=== PATIENT | female | born 1995 | race Caucasian/White ===

== ENCOUNTER → 2017-12-14 | Outpatient (CLI) | payer BC ==
[~2017-12-14] VITALS: Ht 162.6 cm; Wt 72.7 kg
[~2017-12-14] MED LIST: BIRTH CONTROL PO
[2017-12-14 11:30] VITALS: BP 124/82; PULSE 88
== END ==
LOC: COL.RAD 10:55
DX: R59.0 Localized enlarged lymph nodes (principal)